=== PATIENT | male | born 1950 | race Caucasian/White ===

== ENCOUNTER 2022-07-05 14:43 | Emergency (ER) | payer MEDICARE, OTHER ==
[~2022-07-05] VITALS: Ht 170 cm; Wt 83.9 kg
--- NOTE | 2022-07-05 14:48 | ED Upper Extremity ---
General Stated Complaint: LT HAND LAC Source: patient History of Present Illness Date Seen by Provider: Jul 05, 2022 Time Seen by Provider: 14:48 Initial Comments 71-year-old male presenting with laceration to his left hand. He was trying to put Freon into the unit and the plastic fan cut into his hand. He is right-hand dominant. He was unsure of his last tetanus booster. He has no numbness or weakness in his hand or thumb. He has bleeding controlled with pressure. Onset: just prior to arrival Severity: moderate Pain/Injury Location: left hand, left thumb Method of Injury: incised Modifying Factors: Worse With Movement Allergies and Home Medications Allergies Coded Allergies: No Known Drug Allergies (Unverified , 07/05/22) Patient Home Medication List Home Medication List Reviewed: Yes Acetaminophen with Codeine (Acetaminophen-Cod #3 Tablet) 300 Mg-30 Mg Tablet, 1 EACH PO Q6H PRN for PAIN-SEVERE (8-10) Prescribed by: EDENILSON DELGADILLO on 07/05/22 1659 Amoxicillin/Potassium Clav (Amox Tr-K Clv 875-125 mg Tab) 875 Mg-125 Mg Tablet, 1 EACH PO BID Prescribed by: EDENILSON DELGADILLO on 07/05/22 1658 Celecoxib (Celecoxib) 200 Mg Capsule, (Reported) Entered as Reported by: TAMMY GONZALEZ on 07/05/221534 Last Action: New Order Cholecalciferol (Vitamin D3) (Vitamin D3) 25 Mcg (1000 Unit) Tablet, (Reported) Entered as Reported by: TAMMY GONZALEZ on 07/05/221534 Last Action: New Order Fluticasone Propionate (Fluticasone Propionate) 50 Mcg/Actuation [place].susp, (Reported) Entered as Reported by: TAMMY GONZALEZ on 07/05/221534 Last Action: New Order Levetiracetam (Levetiracetam) 500 Mg Tablet, (Reported) Entered as Reported by: TAMMY GONZALEZ on 07/05/221534 Last Action: New Order Lisinopril (Lisinopril) 40 Mg Tablet, (Reported) Entered as Reported by: TAMMY GONZALEZ on 07/05/221534 Last Action: New Order Loratadine (Loratadine) 10 Mg Tablet, (Reported) Entered as Reported by: TAMMY GONZALEZ on 07/05/221534 Last Action: New Order Methocarbamol (Methocarbamol) 750 Mg Tablet, (Reported) Entered as Reported by: TAMMY GONZALEZ on 07/05/221534 Last Action: New Order Omeprazole (Omeprazole) 20 Mg Capsule.dr, (Reported) Entered as Reported by: TAMMY GONZALEZ on 07/05/221534 Last Action: New Order Pravastatin Sodium (Pravastatin Sodium) 80 Mg Tablet, (Reported) Entered as Reported by: TAMMY GONZALEZ on 07/05/221534 Last Action: New Order Ropinirole HCl (Ropinirole HCl) 5 Mg Tablet, (Reported) Entered as Reported by: TAMMY GONZALEZ on 07/05/221534 Last Action: New Order Terazosin HCl (Terazosin HCl) 5 Mg Capsule, (Reported) Entered as Reported by: TAMMY GONZALEZ on 07/05/221534 Last Action: New Order Verapamil HCl (Verapamil ER) 180 Mg Tablet.er, (Reported) Entered as Reported by: TAMMY GONZALEZ on 07/05/221534 Last Action: New Order Review of Systems Constitutional: No chills, No fever EENTM: no symptoms reported Respiratory: no symptoms reported Cardiovascular: no symptoms reported Gastrointestinal: no symptoms reported Genitourinary: no symptoms reported Musculoskeletal: see HPI Skin: see HPI Psychiatric/Neurological: Denies Numbness, Denies Paresthesia, Denies Weakness Physical Exam Vital Signs Vital Signs - First Documented 07/05/22 14:51 Temp 36.7 Pulse 86 Resp 18 B/P (MAP) 131/71 (91) Pulse Ox 95 O2 Delivery Room Air Capillary Refill : Height, Weight, BMI Height: '" Weight: lbs. oz. kg; BMI Method: General Appearance: WD/WN, no apparent distress HEENT: PERRL/EOMI, pharynx normal Neck: non-tender, full range of motion, supple, normal inspection Cardiovascular: normal peripheral pulses, regular rate, rhythm Respiratory: chest non-tender, lungs clear, normal breath sounds, no respiratory distress, no accessory muscle use Hand: Left, laceration (Complex laceration to the left hand and proximal thumb.) Neurologic/Tendon: normal sensation, normal motor functions, normal tendon functions Neurologic/Psychiatric: claims adjuster II-XII nml as tested, no motor/sensory deficits, a lert, oriented x 3 Skin: normal color, warm/dry Procedures/Interventions Wound Location: Upper Extremities (Left hand and thumb) Wound Length (cm): 6.8 Wound's Depth, Shape: irregular, flap, contused tissue, sub Q Wound Explored: clean Irrigated w/ Saline (ccs): 500 Betadine Prep?: Yes Anesthesia: 1% Lidocaine Volume Anesthetic (ccs): 14 Suture: Ethlion Suture Size: 4-0 Number of Sutures: 20 Layer Closure?: 1 Sterile Dressing Applied?: Yes Progress After obtaining verbal consent from the patient the wound was anesthetized with 1% plain lidocaine. A total of 14 mL of 1% plain lidocaine were infiltrated to anesthetize the wound. Then using Betadine and sterile water the wound was flushed and irrigated with 500 mL of solution. No foreign bodies were seen or visualized. The wound edges were approximated using 4-0 Ethilon and a total of 20 simple interrupted stitches. Wound edges were well approximated. Patient tolerated procedure well without any immediate complication. Counseled on increased risk of infection as well as management and follow-up about the wound. Advised to have the stitches out and 10 to 14 days. Be seen sooner if he is having signs or concerns for infection. Take a course of antibiotics to help try and prevent infection. Progress/Results/Core Measures Results/Orders My Orders Orders - EDENILSON DELGADILLO MD Lidocaine 1% Inj 50 Ml (Xylocaine 1% Inj (07/05/22 15:00) Hand 3 View Left (07/05/22 14:53) Suture Set At Bedside (07/05/22 14:53) Dipht,Pertuss(Acell),Tet Adult (Boostrix (07/05/22 17:00) Ice: Apply To Affected Area (07/05/22 17:17) Wound Dressing-Ed (07/05/22 17:17) Medications Given in ED Current Medications Medications Dose Ordered Sig/Juan F Route Start Time Stop Time Status Last Admin Dose Admin Diphtheria/ Tetanus/Acell Pertussis 0.5 ml ONCE ONCE IM 07/05/22 17:00 07/05/22 17:01 DC 07/05/22 17:13 0.5 ML Lidocaine HCl 50 ml ONCE ONCE IJ 07/05/22 15:00 07/05/22 15:01 DC 07/05/22 15:12 50 ML Vital Signs/I&O 07/05/22 07/05/22 07/05/22 14:51 14:51 17:15 Temp 36.7 36.2 Pulse 86 85 80 Resp 18 18 16 B/P (MAP) 131/71 (91) 131/71 (91) 146/88 Pulse Ox 95 95 94 O2 Delivery Room Air Room Air Progress Progress Note : Progress Note X-rays were obtained to evaluate for possible foreign body or bony injury. These were negative for acute fracture or foreign body. Patient was verbally consented for repair of laceration. Using 4-0 Ethilon he had a total of 20 simple interrupted stitches placed to approximate the wound edges. Counseled to have the stitches out in 10 to 14 days. Started on a course of antibiotics since it was a complex wound and did not cut through tendons but appeared to go down to the fascia and just above the tendons. Diagnostic Imaging Diagonstic Imaging: Xray Plain Films/CT/US/NM/MRI: hand Comments [facility], [place] NAME: JULY ADDISON [facility] REC#: [id number] PT STATUS: DEP ER : 1950 PHYSICIAN: EDENILSON DELGADILLO MD ADMIT DATE: 07/05/22/ER FS Signed Date of Exam:07/05/22 HAND 3 VIEW LEFT CLINICAL INDICATION: Patient with pain in the left hand. Patient has laceration to thumb side of the left hand. EXAM: X-ray of the left hand, three views. COMPARISON: None. FINDINGS AND IMPRESSION: 1: There is no fracture or dislocation. 2: There is soft tissue laceration involving the proximal aspect of the first digit. There is no radiodense foreign object. 3: There is a 3 mm focal radiodense foreign object seen on the volar aspect of the fourth DIP joint region. There is no adjacent soft tissue air. 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 There are hypertrophic spurs involving the first IP joint and first MCP joint. There is joint space narrowing of the second and third MCP joint regions. Dictated by: Dictated on workstation # [id number] Dict: 07/05/22 1524 Trans: 07/05/22 1746 [id number] [id number] Interpreted by: ASHLEY CARDONA MD Electronically signed by: ASHLEY CARDONA MD 07/05/22 0156 Reviewed: Reviewed by Me Departure Impression Primary Impression: Laceration of left hand, complicated Qualified Codes: S61.412A - Laceration without foreign body of left hand, initial encounter Disposition: HOME, SELF-CARE Condition: Stable Departure-Patient Inst. Decision time for Depature: 16:55 Referrals: NO,LOCAL PHYSICIAN (PCP/Family) Primary Care Physician Patient Instructions: Hand Pain, Laceration Repair With Stitches ED Add. Discharge Instructions: Keep wound clean and dry for the first 24 hours. Try to keep your hand elevated above heart level to limit bruising and swelling. The stitches and wound could be cleaned with soap and water after the first 24 hours. Then you could apply antibiotic ointment and keep the wound covered if it might get dirty. Stitches should be removed in 10-14 days. You could apply ice or cold pack for 10 to 15 minutes every 3-4 hours as needed to help with bruising and pain. Take the full course of antibiotics to help prevent infection. If you start seeing redness streaking up your hand or have pus draining from the wound or running a fever over 101 Fahrenheit and make sure to be seen right away as you may need IV antibiotics. Scripts Acetaminophen with Codeine (Acetaminophen-Cod #3 Tablet) 300 Mg-30 Mg Tablet 1 EACH PO Q6H PRN for PAIN-SEVERE (8-10) for 5 Days, #20 TAB 0 Refills Prov: EDENILSON DELGADILLO MD 07/05/22 Amoxicillin/Potassium Clav (Amox Tr-K Clv 875-125 mg Tab) 875 Mg-125 Mg Tablet 1 EACH PO BID for Hand Laceration for 7 Days, #14 TAB 0 Refills Prov: EDENILSON DELGADILLO MD 07/05/22 EDENILSON DELGADILLO MD Jul 05, 2022 14:48
[2022-07-05] MEDS ORDERED: LIDOCAINE 1% INJ 50 ML (XYLOCAINE) VIAL IJ ONE (15:00)
[2022-07-05] MEDS ORDERED: ROPI5TAB3 (15:35)
[2022-07-05] MEDS ORDERED: METH-732 (15:35)
[2022-07-05] MEDS ORDERED: TERA5CAP10 (15:35)
[2022-07-05] MEDS ORDERED: CELE-63 (15:35)
[2022-07-05] MEDS ORDERED: CHOL-34 (15:35)
[2022-07-05] MEDS ORDERED: LEVE500T6 (15:35)
[2022-07-05] MEDS ORDERED: VERA180T55 (15:35)
[2022-07-05] MEDS ORDERED: PRAV80TA2 (15:35)
[2022-07-05] MEDS ORDERED: LISI40TA9 (15:35)
[2022-07-05] MEDS ORDERED: LORA10TA7 (15:35)
[2022-07-05] MEDS ORDERED: FLUT16SP22 (15:35)
[2022-07-05] MEDS ORDERED: OMEP20CA18 (15:35)
--- NOTE | 2022-07-05 15:35 | Diagnostic Imaging Report ---
CLINICAL INDICATION: Patient with pain in the left hand. Patient has laceration to thumb side of the left hand. EXAM: X-ray of the left hand, three views. COMPARISON: None. FINDINGS AND IMPRESSION: 1: There is no fracture or dislocation. 2: There is soft tissue laceration involving the proximal aspect of the first digit. There is no radiodense foreign object. 3: There is a 3 mm focal radiodense foreign object seen on the volar aspect of the fourth DIP joint region. There is no adjacent soft tissue air. 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 There are hypertrophic spurs involving the first IP joint and first MCP joint. There is joint space narrowing of the second and third MCP joint regions. Dictated by: Dictated on workstation # [id number]
[2022-07-05] MEDS ORDERED: ACET-11 PO (16:58)
[2022-07-05] MEDS ORDERED: AMOX1TAB12 PO (16:58)
[2022-07-05] MEDS ORDERED: TETANUS,DIPTH,PERTUSS P/F (BOOSTRIX) 0.5 ML VIAL IM ONE (17:00)
[2022-07-05 17:15] VITALS: BP 146/88
== END 2022-07-05 17:15 | disposition home or self-care (01) ==
LOC: ER FS 14:47
DX: S61.012A Laceration without foreign body of left thumb without damage to nail, initial encounter (principal); Z23 Encounter for immunization; Z28.310 Unvaccinated for COVID-19; W26.8XXA Contact with other sharp object(s), not elsewhere classified, initial encounter
CPT/HCPCS: 73130; 90715

== ENCOUNTER 2022-07-16 11:05 | Emergency (ER) | payer MEDICARE, OTHER ==
[~2022-07-16 11:05] MED LIST: ACET-11 PO; AMOX1TAB12 PO; CELE-63; CHOL-34; FLUT16SP22; LEVE500T6; LISI40TA9; LORA10TA7; METH-732; OMEP20CA18; PRAV80TA2; ROPI5TAB3; TERA5CAP10; VERA180T55
[2022-07-16 11:20] VITALS: BP 139/81
--- NOTE | 2022-07-16 11:20 | ED Suture Removal/Wound Check ---
Suture/Wound Re-check Suture Removal/Wound Recheck : Suture Removal/Wound Recheck: Sutures removed by RN General Appearance: WD/WN, no apparent distress Neuro/Tendon: normal sensation, normal motor functions, normal tendon functions Skin Exam: normal color, warm/dry Physical Exam Vital Signs Vital Signs - First Documented 07/16/22 11:13 Pulse 85 Resp 16 Pulse Ox 98 Capillary Refill : General Appearance: WD/WN, no apparent distress Cardiovascular: normal peripheral pulses Skin: normal color, warm/dry Skin Problem Location: upper extremities (left hand) Skin Problem Character: erythema (mild redness at area of healing. no fluctuance, drainage, induration.) Departure Impression Primary Impression: Encounter for removal of sutures Disposition: HOME, SELF-CARE Condition: Stable Departure-Patient Inst. Decision time for Depature: 11:15 Referrals: NO,LOCAL PHYSICIAN (PCP) Primary Care Physician Patient Instructions: SUTURE REMOVAL-UNCOMPLICATED EDENILSON DELGADILLO MD Jul 16, 2022 11:20
== END 2022-07-16 11:20 | disposition home or self-care (01) ==
LOC: EDUNIT# 11:05 → ER FS 11:07
DX: Z48.02 Encounter for removal of sutures (principal)